=== PATIENT | female | born 1955 | race Caucasian/White ===

== ENCOUNTER 2021-05-02 17:26 | Emergency (ER) | payer BC ==
[~2021-05-02] VITALS: Ht 162.6 cm; Wt 52.2 kg
[2021-05-02] MEDS ORDERED: OXYBUTYNIN 5 MG5 M2 PO (17:33)
[2021-05-02] MEDS ORDERED: [UNRECOGNIZED DRUG - REMARK] (17:33)
[2021-05-02 18:50] VITALS: BP 163/91
== END 2021-05-02 18:51 | disposition home or self-care (01) ==
LOC: M.ERS 17:26
DX: S01.01XA Laceration without foreign body of scalp, initial encounter (principal); Z79.899 Other long term (current) drug therapy; W22.8XXA Striking against or struck by other objects, initial encounter; Y93.89 Activity, other specified; Y92.89 Other specified places as the place of occurrence of the external cause; Y99.8 Other external cause status